=== PATIENT | female | born 1965 | race Caucasian/White ===

== ENCOUNTER → 2016-12-27 | Day surgery (SDC) | payer MEDICARE ==
[~2016-12-27] VITALS: Ht 157.4 cm; Wt 49.9 kg
[~2016-12-27] MED LIST: ESTRADIOL 1 MG PO; KLONOPIN0.5 MG PO; LOPRESSOR25 MG PO; METOPROLOL TART50 M1 PO; OMEPRAZOLE CAP 20M PO; SIMVASTATIN40 MG PO; SYMBICORT AER 160 INH; VITAMIN D-32000 UNIT PO; ZYPREXA15 MG PO; [UNRECOGNIZED DRUG - OTHER] PO
--- NOTE | ~2016-12-27 | O ---
[place], [place] OPERATIVE NOTE NAME: ERWIN VILLAREAL UNIT #: [id number] ROOM: DOCTOR: CLAUDE ZAMORA MD BIRTHDATE: [birth year] DOS: 12/27/2016 GASTROENDOSCOPIC REPORT. HISTORY OF PRESENT ILLNESS: A 51-year-old patient with a chief complaint of blood in the stool, on omeprazole, undergoing investigation. ALLERGIES: No known medication. FAMILY HISTORY: Noncontributory. PAST SURGICAL HISTORY: Hysterectomy; gastric surgery, unknown details; podiatric surgery. PAST MEDICAL HISTORY: Hypercholesterolemia, hypertension, hypothyroidism. SOCIAL HISTORY: Nonsmoker and social alcohol consumer. PROCEDURE: Todays' procedure part of investigation is colonoscopy. PREMEDICATION: Versed and Diprivan. SCOPE: Olympus forward-viewing colonoscope 10L video. REPORT: After putting the patient in the left lateral position and after application of lubricant to rectal pouch and digital examination, scope was introduced. Thereafter, under direct visualization, I advanced through the length of colon without difficulty. Difficulty only being secondary to tortuosity of the colon, which overcame with appropriate maneuvers. Base of the cecum explored, appendiceal orifice identified, and ileocecal valve . Scope was gradually withdrawn. The patient extubated, tolerated procedure well. IMPRESSION: 1. Normal colonoscopic examination except anatomical tortuosity. 2. No evidence of acute hemorrhoid. PLAN AND DISCUSSION: Anusol preparation H supplementation p.r.n. to use, assurance was given. [place], [place] OPERATIVE NOTE NAME: ERWIN VILLAREAL UNIT #: [id number] ROOM: DOCTOR: CLAUDE ZAMORA MD BIRTHDATE: [birth year] CLAUDE ZAMORA MD CM:OPRECORD:OPERATIVE NOTE [id number] CLAUDE ZAMORA MD 12/27/16 1350 interface
[2016-12-27 12:19] VITALS: BP 124/63
[2016-12-27 13:20] VITALS: BP 148/82
[2016-12-27 13:33] VITALS: BP 148/82
== END | disposition home or self-care (01) ==
LOC: SDC 12-24 11:00
DX: K92.1 Melena (principal); K63.89 Other specified diseases of intestine; Z90.710 Acquired absence of both cervix and uterus; Z98.890 Other specified postprocedural states; E78.00 Pure hypercholesterolemia, unspecified; I10 Essential (primary) hypertension; E03.9 Hypothyroidism, unspecified; J45.909 Unspecified asthma, uncomplicated; K21.9 Gastro-esophageal reflux disease without esophagitis; Z79.899 Other long term (current) drug therapy

== ENCOUNTER → 2017-07-24 | Outpatient (CLI) | payer MEDICARE | END | disposition home or self-care (01) | LOC: RAD 07-17 13:00 → MAMMO 07-17 13:30 → RAD 07-23 11:30 → MAMMO 01:25 | DX: Z12.31 Encounter for screening mammogram for malignant neoplasm of breast (principal); E55.9 Vitamin D deficiency, unspecified ==

== ENCOUNTER → 2020-06-26 | Outpatient (CLI) | payer MEDICARE | END | disposition home or self-care (01) | LOC: MAMMO 05-11 09:30 | PROVIDERS: ATTEND Family Medicine | DX: Z12.31 Encounter for screening mammogram for malignant neoplasm of breast (principal); J02.9 Acute pharyngitis, unspecified ==